=== PATIENT | female | born 1950 | race Caucasian/White ===

== ENCOUNTER 2016-12-22 12:43 | Outpatient (CLI) | payer MEDICARE ==
[2016-12-22 16:40] VITALS: BP 127/76
== END 2016-12-22 14:15 | disposition home or self-care (01) ==
LOC: D.OPS 12:43
DX: M81.0 Age-related osteoporosis without current pathological fracture (principal)

== ENCOUNTER 2017-07-06 12:49 | Outpatient (CLI) | payer MEDICARE ==
[~2017-07-06] VITALS: Ht 167.6 cm; Wt 76.7 kg
[2017-07-06 13:57] VITALS: BP 126/78; Ht 167.6 cm; Wt 76.7 kg
== END 2017-07-06 14:25 | disposition home or self-care (01) ==
LOC: D.OPS 12:49
DX: M81.0 Age-related osteoporosis without current pathological fracture (principal)

== ENCOUNTER 2017-12-27 12:48 | Outpatient (CLI) | payer MEDICARE ==
[~2017-12-27] VITALS: Ht 167.6 cm; Wt 55.9 kg
[2017-12-27 14:06] VITALS: Ht 167.6 cm; Wt 55.9 kg
== END 2017-12-27 14:14 | disposition home or self-care (01) ==
LOC: D.OPS 12:48
DX: M81.0 Age-related osteoporosis without current pathological fracture (principal)

== ENCOUNTER 2018-07-11 13:41 | Outpatient (CLI) | payer MEDICARE ==
[~2018-07-11] VITALS: Ht 167.6 cm; Wt 73.6 kg
[2018-07-11 14:14] VITALS: BP 120/63; Ht 167.6 cm; Wt 73.6 kg
== END 2018-07-11 14:55 | disposition home or self-care (01) ==
LOC: D.OPS 13:41
DX: M81.0 Age-related osteoporosis without current pathological fracture (principal)

== ENCOUNTER 2019-01-10 12:19 | Outpatient (CLI) | payer MEDICARE ==
[~2019-01-10] VITALS: Ht 167.6 cm; Wt 95.5 kg
[2019-01-10 13:21] VITALS: BP 137/81; Ht 167.6 cm; Wt 95.5 kg
== END 2019-01-10 13:40 | disposition home or self-care (01) ==
LOC: D.OPS 12:19
PROVIDERS: ATTEND Family Medicine
DX: M81.0 Age-related osteoporosis without current pathological fracture (principal)

== ENCOUNTER 2020-01-24 12:19 | Outpatient (CLI) | payer MEDICARE ==
[~2020-01-24] VITALS: Ht 167.6 cm; Wt 100.0 kg
[2020-01-24 12:54] VITALS: Ht 167.6 cm; Wt 100.0 kg
== END 2020-01-24 13:04 | disposition home or self-care (01) ==
LOC: D.OPS 12:19
PROVIDERS: ATTEND Family Medicine
DX: M81.0 Age-related osteoporosis without current pathological fracture (principal)

== ENCOUNTER 2020-08-19 13:27 | Outpatient (CLI) | payer MEDICARE ==
[~2020-08-19] VITALS: Ht 167.6 cm; Wt 100.9 kg
[2020-08-19 13:50] VITALS: BP 153/83; Ht 167.6 cm; Wt 100.9 kg
--- NOTE | 2020-08-19 14:01 | NUR ---
PT DC INSTRUCTION GIVEN, PT VERBALIZES UNDERSTANDING. PT LEAVING OPS AT THIS TIME, NAD NOTED.
== END 2020-08-19 14:03 | disposition home or self-care (01) ==
LOC: D.OPS 13:27
PROVIDERS: ATTEND Family Medicine
DX: M81.0 Age-related osteoporosis without current pathological fracture (principal)